=== PATIENT | male | born 1940 | race Caucasian/White ===

== ENCOUNTER 2016-07-01 05:33 | Emergency (ER) | payer MEDICARE, BC ==
[2016-07-01 05:41] VITALS: BP 140/94
--- NOTE | 2016-07-01 06:22 | EDM.PDOC ---
ED HPI RENAL/ - General Chief Complaint: Genitourinary Problem Stated Complaint: BLADDER, CANT URINATE Time Seen by Provider: 07/01/16 06:18 Source of Information: Reports: Patient History Limitations: Reports: No limitations - History of Present Illness INITIAL COMMENTS - FREE TEXT/NARRATIVE: 76 yo white male c/o urinary retention PMHx. BPH Symptom Onset Date: 07/01/16 Symptom Onset Time: 20:00 Timing/Duration: Reports: Hour(s): Location: Reports: suprapubic Quality: Reports: fullness Severity: moderate Context: Reports: other (enlarged Prostate) Associated Symptoms: Reports: unable to urinate - Related Data Allergies/ADRs: Allergies Allergy/AdvReac Type Severity Reaction Status Date / Time aspirin Allergy Nausea and Verified 07/01/16 05:47 Vomiting diphenhydramine Allergy Cannot Verified 07/01/16 05:47 Remember metronidazole Allergy Nausea and Verified 07/01/16 05:47 Vomiting Home Meds: Home Meds Amitriptyline HCl [Amitriptyline HCl] 25 mg PO BEDTIME 03/11/16 [History] Aspirin [Ecotrin] 81 mg PO DAILY 03/11/16 [History] Doxazosin [Cardura] 4 mg PO DAILY 03/11/16 [History] Famotidine [Pepcid] 20 mg PO BID 03/11/16 [History] Hydrochlorothiazide/Lisinopril [Lisinopril/HCTZ 10-12.5 MG] 1 tab PO DAILY 03/11 [History] Hydrocodone/Acetaminophen [[place] 10-325 Tablet] 1 tab PO BID PRN 03/11/16 [ History] Hydrocortisone Acetate [Anucort-HC] 1 supp RECTAL ASDIRECTED PRN 03/11/16 [ History] Mag Hydrox/Al Hydrox/Simeth [Maalox Maximum Strength Susp] 30 ml PO TID [History] Metoprolol Succinate [Toprol XL] 25 mg PO DAILY 03/11/16 [History] traMADol HCl [Tramadol HCl] 50 mg PO TID PRN 03/11/16 [History] Past Medical History HEENT History: Reports: Impaired vision Other HEENT History: wears glasses Cardiovascular History: Reports: High cholesterol, Hypertension Respiratory History: Reports: None Gastrointestinal History: Reports: Diverticulosis, Gastritis, GERD, Irritable bowel syndrome Genitourinary History: Reports: Prostate disorder Musculoskeletal History: Reports: Osteoarthritis, Other (see below) Other Musculoskeletal History: degenerative disc disease, L) knee pain Neurological History: Reports: None Psychiatric History: Reports: None Endocrine/Metabolic History: Reports: Obesity/BMI 30+, Other (see below) Other Endocrine/Metabolic History: perdiabetes Hematologic History: Reports: None Immunologic History: Reports: None Oncologic (Cancer) History: Reports: None Dermatologic History: Reports: None - Infectious Disease History Infectious Disease History: Reports: Measles, Mumps - Past Surgical History Head Surgeries/Procedures: Reports: None HEENT Surgical History: Reports: None Cardiovascular Surgical History: Reports: None GI Surgical History: Reports: Cholecystectomy, Colonoscopy, EGD Male Surgical History: Reports: None Endocrine Surgical History: Reports: None Neurological Surgical History: Reports: None Musculoskeletal Surgical History: Reports: Arthroscopic knee, Arthroscopic procedure Other Musculoskeletal Surgeries/Procedures:: ARTHROSCOPY TO SHOULDER AND KNEE Oncologic Surgical History: Reports: None Dermatological Surgical History: Reports: None Social & Family History - Family History Family Medical History: Noncontributory - Tobacco Use Smoking Status *Q: Never Smoker Second Hand Smoke Exposure: No - Caffeine Use Caffeine Use: Reports: None - Recreational Drug Use Recreational Drug Use: No Drug Use in Last 12 Months: No ED ROS GENERAL - Review of Systems Review Of Systems: See Below Constitutional: Reports: no symptoms HEENT: Reports: No symptoms Respiratory: Reports: No Symptoms Cardiovascular: Reports: No symptoms Endocrine: Reports: no symptoms GI/Abdominal: Reports: No symptoms : Reports: urinary retention Musculoskeletal: Reports: no symptoms Skin: Reports: no symptoms Neurological: Reports: No Symptoms Psychiatric: Reports: No symptoms Hematologic/Lymphatic: Reports: no symptoms Immunologic: Reports: no symptoms ED EXAM, RENAL/ - Physical Exam Exam: See Below Exam Limited By: No limitations General Appearance: alert, WD/WN, no apparent distress, obese Eye Exam: bilateral eye: PERRL Ears: normal external exam Nose: normal inspection Throat/Mouth: Normal inspection Head: atraumatic Neck: normal inspection Respiratory/Chest: no respiratory distress Cardiovascular: normal peripheral pulses GI/Abdominal: normal bowel sounds, soft, non tender (Male) Exam: No hernia, Normal inspection Back Exam: normal inspection Extremities: normal inspection, normal range of motion Neurological: alert, oriented, CN II-XII intact Psychiatric: normal affect Skin Exam: Warm, Dry Lymphatic: no adenopathy Course - Vital Signs Last Recorded V/S: Last Vital Signs Temp 36.2 C 07/01/16 05:36 Pulse 78 07/01/16 05:36 Resp 18 07/01/16 05:36 BP 140/94 H 07/01/16 05:36 Pulse Ox 97 07/01/16 05:36 - Orders/Labs/Meds Labs: Laboratory Tests 07/01/16 Range/Units 05:49 Urine Color Yellow (YELLOW) Urine Appearance Clear (CLEAR) Urine pH 7.5 (5.0-9.0) Ur Specific [place] 1.015 (1.005-1.030) Urine Protein Negative (NEGATIVE) Urine Glucose (UA) Negative (NEGATIVE) Urine Ketones Negative (NEGATIVE) Urine Occult Blood Moderate H (NEGATIVE) Urine Nitrite Negative (NEGATIVE) Urine Bilirubin Negative (NEGATIVE) Urine Urobilinogen 0.2 (0.2-1.0) mg/dL Ur Leukocyte Esterase Negative (NEGATIVE) Urine RBC 5-10 H /HPF Urine WBC 0-5 (0-5/HPF) /HPF Ur Epithelial Cells Rare /HPF Urine Mucus Rare /LPF Departure - Departure Time of Disposition: 06:20 Disposition: Home, Self-Care 01 Condition: good Clinical Impression: Urinary retention due to benign prostatic hyperplasia Forms: ED Department Discharge Additional Instructions: keep urinary leg bag in place and continue taking your medications as prescribed F/U w/ your PCP for Referral to Urology for evaluation
== END 2016-07-01 06:37 | disposition home or self-care (01) ==
LOC: DL.ED 05:33
DX: N40.1 Benign prostatic hyperplasia with lower urinary tract symptoms (principal); R33.8 Other retention of urine; E78.00 Pure hypercholesterolemia, unspecified; I10 Essential (primary) hypertension; K21.9 Gastro-esophageal reflux disease without esophagitis; M19.90 Unspecified osteoarthritis, unspecified site; E66.9 Obesity, unspecified; Z90.49 Acquired absence of other specified parts of digestive tract; Z79.82 Long term (current) use of aspirin; Z79.899 Other long term (current) drug therapy; Z88.6 Allergy status to analgesic agent; Z88.8 Allergy status to other drugs, medicaments and biological substances
CPT/HCPCS: 51702; 81001; 99282; 99283

== ENCOUNTER 2016-07-02 08:17 | Emergency (ER) | payer MEDICARE, BC ==
[2016-07-02 08:36] VITALS: BP 135/84
--- NOTE | 2016-07-02 08:42 | EDM.PDOC ---
ED HPI RENAL/ - General Chief Complaint: Genitourinary Problem Stated Complaint: TROUBLE WITH PROSTATE BAG/BLOOD Time Seen by Provider: 07/02/16 08:36 Source of Information: Reports: Patient History Limitations: Reports: No limitations - History of Present Illness INITIAL COMMENTS - FREE TEXT/NARRATIVE: pt states that he was having urinary retention yesterday and was seen here and had a urinary henley placed and today he woke with hematuria. c/o mild tenderness. no other complaints. hematuria noted to leg bag with small clot. Symptom Onset Date: 07/02/16 Timing/Duration: Reports: Getting worse Location: Reports: urethral Quality: Reports: ache Severity: mild Associated Symptoms: Reports: no other symptoms - Related Data Allergies/ADRs: Allergies Allergy/AdvReac Type Severity Reaction Status Date / Time aspirin Allergy Nausea and Verified 07/02/16 08:26 Vomiting diphenhydramine Allergy Cannot Verified 07/02/16 08:26 Remember metronidazole Allergy Nausea and Verified 07/02/16 08:26 Vomiting Home Meds: Home Meds Amitriptyline HCl [Amitriptyline HCl] 25 mg PO BEDTIME 03/11/16 [History] Doxazosin [Cardura] 4 mg PO DAILY 03/11/16 [History] Famotidine [Pepcid] 20 mg PO BID 03/11/16 [History] Hydrochlorothiazide/Lisinopril [Lisinopril/HCTZ 10-12.5 MG] 1 tab PO DAILY 03/11 [History] Hydrocodone/Acetaminophen [[place] 10-325 Tablet] 1 tab PO BID PRN 03/11/16 [ History] Hydrocortisone Acetate [Anucort-HC] 1 supp RECTAL ASDIRECTED PRN 03/11/16 [ History] Mag Hydrox/Al Hydrox/Simeth [Maalox Maximum Strength Susp] 30 ml PO TID [History] Metoprolol Succinate [Toprol XL] 25 mg PO DAILY 03/11/16 [History] traMADol HCl [Tramadol HCl] 50 mg PO TID PRN 03/11/16 [History] Past Medical History HEENT History: Reports: Impaired vision Other HEENT History: wears glasses Cardiovascular History: Reports: High cholesterol, Hypertension Respiratory History: Reports: None Gastrointestinal History: Reports: Diverticulosis, Gastritis, GERD, Irritable bowel syndrome Genitourinary History: Reports: Prostate disorder Musculoskeletal History: Reports: Osteoarthritis, Other (see below) Other Musculoskeletal History: degenerative disc disease, L) knee pain Neurological History: Reports: None Psychiatric History: Reports: None Endocrine/Metabolic History: Reports: Obesity/BMI 30+, Other (see below) Other Endocrine/Metabolic History: perdiabetes Hematologic History: Reports: None Immunologic History: Reports: None Oncologic (Cancer) History: Reports: None Dermatologic History: Reports: None - Infectious Disease History Infectious Disease History: Reports: Measles, Mumps - Past Surgical History Head Surgeries/Procedures: Reports: None HEENT Surgical History: Reports: None Cardiovascular Surgical History: Reports: None GI Surgical History: Reports: Cholecystectomy, Colonoscopy, EGD Male Surgical History: Reports: None Endocrine Surgical History: Reports: None Neurological Surgical History: Reports: None Musculoskeletal Surgical History: Reports: Arthroscopic knee, Arthroscopic procedure Other Musculoskeletal Surgeries/Procedures:: ARTHROSCOPY TO SHOULDER AND KNEE Oncologic Surgical History: Reports: None Dermatological Surgical History: Reports: None Social & Family History - Family History Family Medical History: Noncontributory - Tobacco Use Smoking Status *Q: Never Smoker Second Hand Smoke Exposure: No - Caffeine Use Caffeine Use: Reports: None - Recreational Drug Use Recreational Drug Use: No Drug Use in Last 12 Months: No ED ROS GENERAL - Review of Systems Review Of Systems: See Below : Reports: hematuria ED EXAM, RENAL/ - Physical Exam Exam: See Below Exam Limited By: No limitations General Appearance: alert, WD/WN, no apparent distress Respiratory/Chest: no respiratory distress, lungs clear, normal breath sounds, no accessory muscle use, chest non-tender Cardiovascular: normal peripheral pulses, regular rate, rhythm, no edema, no gallop, no JVD, no murmur, no rub (Male) Exam: Other (henley in place. moderate hematuria noted in bag with small clots. no drainage present at meatus currently. ) Course - Vital Signs Last Recorded V/S: Last Vital Signs Temp 97.4 F 07/02/16 08:32 Pulse 63 07/02/16 08:32 Resp 18 07/02/16 08:32 BP 135/84 07/02/16 08:32 Pulse Ox 95 07/02/16 08:32 - Orders/Labs/Meds Orders: Active Orders 24 hr Category Date Time Status Bladder Irrigation [RC] ASDIRECTED Care 07/02/16 08:44 Active Henley Catheter Insertion [Insert Urinary Catheter] [OM. Care 07/02/16 09:30 Ordered PC] Q24H Urinary Catheter Assessment [RC] ASDIRECTED Care 07/02/16 09:24 Active - Re-Assessments/Exams Free Text/Narrative Re-Assessment/Exam: 07/02/16 09:42Foley replaced now with pink tinged urine, no drainage at meatus or around henley noted. Departure - Departure Time of Disposition: 09:43 Disposition: Home, Self-Care 01 Condition: good Clinical Impression: Hematuria syndrome, Urinary retention due to benign prostatic hyperplasia Instructions: Henley Catheter Care, Adult, Acute Urinary Retention, Male Forms: ED Department Discharge Additional Instructions: Make sure to keep your appointment today. Return for any worsening symptoms - My Orders Last 24 Hours: My Active Orders 07/02/16 08:44 Bladder Irrigation [RC] ASDIRECTED 07/02/16 09:24 Urinary Catheter Assessment [RC] ASDIRECTED 07/02/16 09:30 Henley Catheter Insertion [Insert Urinary Catheter] [OM.PC] Q24H - Assessment/Plan Last 24 Hours: My Active Orders 07/02/16 08:44 Bladder Irrigation [RC] ASDIRECTED 07/02/16 09:24 Urinary Catheter Assessment [RC] ASDIRECTED 07/02/16 09:30 Henley Catheter Insertion [Insert Urinary Catheter] [OM.PC] Q24H
== END 2016-07-02 09:52 | disposition home or self-care (01) ==
LOC: DL.ED 08:17
DX: N40.1 Benign prostatic hyperplasia with lower urinary tract symptoms (principal); R33.8 Other retention of urine; R31.9 Hematuria, unspecified; E78.00 Pure hypercholesterolemia, unspecified; I10 Essential (primary) hypertension; K21.9 Gastro-esophageal reflux disease without esophagitis; M19.90 Unspecified osteoarthritis, unspecified site; E66.9 Obesity, unspecified; Z90.49 Acquired absence of other specified parts of digestive tract; Z88.6 Allergy status to analgesic agent; Z88.8 Allergy status to other drugs, medicaments and biological substances; Z79.899 Other long term (current) drug therapy; Z98.890 Other specified postprocedural states
CPT/HCPCS: 51702; 99282; 99283

== ENCOUNTER 2018-06-28 13:26 | Emergency (ER) | payer OTHER ==
[2018-06-28 14:11] LABS: ANION GAP 13.6
--- NOTE | 2018-06-28 14:13 | EDM.PDOC ---
<Pavel Barrett - Last Filed: 06/28/18 15:02> ED HPI GENERAL MEDICAL PROBLEM - General Chief Complaint: Gastrointestinal Problem Stated Complaint: POSSIBLE BOWL UBSTRUCTION Time Seen by Provider: 06/28/18 14:00 - Related Data Allergies Allergy/AdvReac Type Severity Reaction Status Date / Time aspirin Allergy Nausea and Verified 07/02/16 08:26 Vomiting diphenhydramine Allergy Cannot Verified 07/02/16 08:26 Remember metronidazole Allergy Nausea and Verified 07/02/16 08:26 Vomiting Home Meds: Home Meds Amitriptyline HCl 25 mg PO BEDTIME 03/11/16 [History] Doxazosin [Cardura] 4 mg PO DAILY 03/11/16 [History] Famotidine [Pepcid] 20 mg PO BID 03/11/16 [History] Hydrochlorothiazide/Lisinopril [Lisinopril/HCTZ 10-12.5 MG] 1 tab PO DAILY 03/11 [History] Hydrocodone/Acetaminophen [[place] 10-325 Tablet] 1 tab PO BID PRN 03/11/16 [ History] Hydrocortisone Acetate [Anucort-HC] 1 supp RECTAL ASDIRECTED PRN 03/11/16 [ History] Mag Hydrox/Al Hydrox/Simeth [Maalox Maximum Strength Susp] 30 ml PO TID [History] Metoprolol Succinate [Toprol XL] 25 mg PO DAILY 03/11/16 [History] traMADol HCl [Tramadol HCl] 50 mg PO TID PRN 03/11/16 [History] Course - Vital Signs Last Recorded V/S: Last Vital Signs Temp 98.0 F 06/28/18 13:32 Pulse 58 L 06/28/18 13:32 Resp 18 06/28/18 13:32 BP 119/61 06/28/18 13:32 Pulse Ox 98 06/28/18 13:32 - Orders/Labs/Meds Orders: Active Orders 24 hr Category Date Time Status CULTURE BLOOD [BC] Stat Lab 06/28/18 13:42 Received UA W/MICROSCOPIC [URIN] Urgent Lab 06/28/18 14:47 Results Labs: Laboratory Tests 06/28/18 06/28/18 06/28/18 Range/Units 13:42 13:42 13:42 WBC 5.6 (5.0-10.0) 10^3/uL RBC 4.31 L (4.6-6.2) 10^6/uL Hgb 12.9 L (14.0-18.0) g/dL Hct 39.3 L (40.0-54.0) % MCV 91.2 (80-100) fL MCH 29.9 (27.0-34.0) pg MCHC 32.8 L (33.0-35.0) g/dL Plt Count 290 (150-450) 10^3/uL Neut % (Auto) 50.0 (42.2-75.2) % Lymph % (Auto) 22.3 (20.5-50.1) % [place] % (Auto) 19.6 H (2-8) % Eos % (Auto) 7.6 H (1.0-3.0) % Baso % (Auto) 0.5 (0.0-1.0) % Sodium (135-145) mmol/L Potassium (3.6-5.0) mmol/L Chloride (101-111) mmol/L Carbon Dioxide (21.0-31.0) mmol/L Anion Gap BUN (7-18) mg/dL Creatinine (0.6-1.3) mg/dL Est Cr Clr Drug Dosing mL/min Estimated GFR (MDRD) BUN/Creatinine Ratio Glucose (74-105) mg/dL Lactic Acid 0.6 (0.5-2.2) mmol/L Calcium (8.4-10.2) mg/dl Total Bilirubin (0.2-1.0) mg/dL AST (10-42) IU/L ALT (10-60) IU/L Alkaline Phosphatase (42-121) IU/L Total Protein (6.7-8.2) g/dl Albumin (3.2-5.5) g/dl Globulin Albumin/Globulin Ratio Amylase 37 (28-100) U/L Lipase 26 (22-51) U/L Urine Color (YELLOW) Urine Appearance (CLEAR) Urine pH (5.0-9.0) Ur Specific [place] (1.005-1.030) Urine Protein (NEGATIVE) Urine Glucose (UA) (NEGATIVE) Urine Ketones (NEGATIVE) Urine Occult Blood (NEGATIVE) Urine Nitrite (NEGATIVE) Urine Bilirubin (NEGATIVE) Urine Urobilinogen (0.2-1.0) mg/dL Ur Leukocyte Esterase (NEGATIVE) 06/28/18 06/28/18 Range/Units 13:42 14:47 WBC (5.0-10.0) 10^3/uL RBC (4.6-6.2) 10^6/uL Hgb (14.0-18.0) g/dL Hct (40.0-54.0) % MCV (80-100) fL MCH (27.0-34.0) pg MCHC (33.0-35.0) g/dL Plt Count (150-450) 10^3/uL Neut % (Auto) (42.2-75.2) % Lymph % (Auto) (20.5-50.1) % [place] % (Auto) (2-8) % Eos % (Auto) (1.0-3.0) % Baso % (Auto) (0.0-1.0) % Sodium 135 (135-145) mmol/L Potassium 3.6 (3.6-5.0) mmol/L Chloride 95 L (101-111) mmol/L Carbon Dioxide 30.0 (21.0-31.0) mmol/L Anion Gap 13.6 BUN 27 H (7-18) mg/dL Creatinine 1.4 H (0.6-1.3) mg/dL Est Cr Clr Drug Dosing 50.73 mL/min Estimated GFR (MDRD) 49 BUN/Creatinine Ratio 19.28 Glucose 98 (74-105) mg/dL Lactic Acid (0.5-2.2) mmol/L Calcium 10.7 H (8.4-10.2) mg/dl Total Bilirubin 0.7 (0.2-1.0) mg/dL AST 21 (10-42) IU/L ALT 21 (10-60) IU/L Alkaline Phosphatase 76 (42-121) IU/L Total Protein 6.9 (6.7-8.2) g/dl Albumin 3.9 (3.2-5.5) g/dl Globulin 3.0 Albumin/Globulin Ratio 1.30 Amylase (28-100) U/L Lipase (22-51) U/L Urine Color Dark yellow (YELLOW) Urine Appearance Clear (CLEAR) Urine pH >= 9.0 (5.0-9.0) Ur Specific [place] 1.015 (1.005-1.030) Urine Protein Trace H (NEGATIVE) Urine Glucose (UA) Negative (NEGATIVE) Urine Ketones Negative (NEGATIVE) Urine Occult Blood Negative (NEGATIVE) Urine Nitrite Negative (NEGATIVE) Urine Bilirubin Negative (NEGATIVE) Urine Urobilinogen 0.2 (0.2-1.0) mg/dL Ur Leukocyte Esterase Negative (NEGATIVE) - Re-Assessments/Exams Free Text/Narrative Re-Assessment/Exam: 06/28/18 15:03 I have examined the patient. I have discussed findings and treatment plan with the medical student. I agree with the assessment and plan in the following medical student's note. Departure - Departure Disposition: DC/Tfer to Other Clinical Impression: Abdominal pain - Discharge Information Referrals: Eli Jennings NP [Primary Care Provider] - Forms: Interfacility Transfer EMTALA Care Plan Goals: Discussed the examination, history, lab and CT results with Dr. Horner. Dr. Horner accepted the patient for continued evaluation and management as an inpatient at [facility] in [place]. The patient will be transported by [facility]. <Becca Bhat - Last Filed: 06/28/18 15:11> ED HPI GENERAL MEDICAL PROBLEM - General Source of Information: Reports: Patient History Limitations: Reports: No Limitations - History of Present Illness INITIAL COMMENTS - FREE TEXT/NARRATIVE: Evaristo is a 77 year old male directed to the Emergency [facility] from the [facility] presenting with midepigastric abdominal pain. He states for the past 4 days he has had a burning midepigastric pain with associated decreased appetite and multiple episodes of diarrhea. He denies nausea, vomiting, fever, chills, chest pain, shortness of breath, changes in bladder function, or swelling in his extremities. Past Medical History HEENT History: Reports: Impaired Vision Other HEENT History: wears glasses Cardiovascular History: Reports: High Cholesterol, Hypertension Respiratory History: Reports: None Gastrointestinal History: Reports: Diverticulosis, Gastritis, GERD, Irritable Bowel Syndrome Genitourinary History: Reports: Prostate Disorder Musculoskeletal History: Reports: Osteoarthritis, Other (See Below) Other Musculoskeletal History: degenerative disc disease, L) knee pain Neurological History: Reports: None Psychiatric History: Reports: None Endocrine/Metabolic History: Reports: Obesity/BMI 30+, Other (See Below) Other Endocrine/Metabolic History: perdiabetes Hematologic History: Reports: None Immunologic History: Reports: None Oncologic (Cancer) History: Reports: None Dermatologic History: Reports: None - Infectious Disease History Infectious Disease History: Reports: Measles, Mumps - Past Surgical History Head Surgeries/Procedures: Reports: None Neurological Surgical History: Reports: None Musculoskeletal Surgical History: Reports: Arthroscopic Knee, Arthroscopic Procedure Oncologic Surgical History: Reports: None Dermatological Surgical History: Reports: None Social & Family History - Family History Family Medical History: Noncontributory - Tobacco Use Smoking Status *Q: Never Smoker - Caffeine Use Caffeine Use: Reports: None - Recreational Drug Use Recreational Drug Use: No ED ROS GENERAL - Review of Systems Review Of Systems: ROS reveals no pertinent complaints other than HPI. ED EXAM, GI/ABD - Physical Exam Exam: See Below Exam Limited By: No Limitations General Appearance: Alert, No Apparent Distress Eyes: Bilateral: EOMI, Pale Conjunctiva (mild scleral icterus ) Ears: Normal External Exam Nose: Other (bilateral telangiectasia) Throat/Mouth: Normal Inspection Head: Atraumatic, Normocephalic Neck: Normal Inspection, Supple, Non-Tender, Full Range of Motion Respiratory/Chest: Crackles Cardiovascular: Normal Peripheral Pulses, Regular Rate, Rhythm, No Edema GI/Abdominal Exam: Soft, Distended, Tender (epigastric), Abnormal Bowel Sounds ( hyperactive). No: Guarding, Rigid Extremities: Normal Inspection, No Pedal Edema Neurological: Alert, Oriented Skin Exam: Warm, Dry, Intact, Normal Color Departure - Departure Time of Disposition: 14:58 Condition: Fair - Discharge Information *PRESCRIPTION DRUG MONITORING PROGRAM REVIEWED*: No *COPY OF PRESCRIPTION DRUG MONITORING REPORT IN PATIENT NAMRATA: No - Problem List & Annotations (1) Abdominal pain SNOMED Code(s): 62731399 Code(s): R10.9 - UNSPECIFIED ABDOMINAL PAIN Status: Acute Current Visit: Yes (2) Small bowel obstruction due to adhesions SNOMED Code(s): 550372978 Code(s): K56.50 - INTESTNL ADHESIONS, UNSP TO PARTIAL VERSUS COMPLETE OBST Status: Acute Current Visit: Yes - Problem List Review Problem List Initiated/Reviewed/Updated: Yes - Assessment/Plan Assessment:: Evaristo is a 77 year old male presenting with epigastric abdominal pain for [address] scan was completed showing a mechanical small bowel obstruction. Plan: Laboratory tests including CBC, CMP, Urinalysis, Blood cultures, Lactic acid, Amylase and Lipase were completed. [facility] about [facility] and was given instruction to call [facility] because they do not have GI coverage.
[2018-06-28 15:27] VITALS: BP 124/65
== END 2018-06-28 15:36 ==
LOC: DL.ED 13:26
DX: K56.699 Other intestinal obstruction unspecified as to partial versus complete obstruction (principal); R73.03 Prediabetes; E78.00 Pure hypercholesterolemia, unspecified; I10 Essential (primary) hypertension; Z79.899 Other long term (current) drug therapy; Z88.8 Allergy status to other drugs, medicaments and biological substances
CPT/HCPCS: 36415; 80053; 81001; 82150; 83605; 83690; 85025; 87040; 99285

== ENCOUNTER 2024-12-29 16:52 | Emergency (ER) | payer MEDICARE, BC ==
[2024-12-29] MEDS ORDERED: Sodium Chloride 0.9% 10 ML Syringe FLUSH PRN (17:05)
[2024-12-29 17:17] LABS: PLATELET COUNT,PLT 373 10^3/uL (150-450); RED BLOOD CELL COUNT 3.62 10^6/uL (4.6-6.2); WHITE BLOOD CELL COUNT,WBC 19.2 10^3/uL (5.0-10.0)
[2024-12-29 17:28] LABS: BASOPHILS PERCENT AUTO 0.3 % (0.0-1.0); EOSINOPHILS PERCENT AUTO 0.2 % (1.0-3.0); LYMPHOCYTES PERCENT AUTO 3.8 % (20.5-50.1); MONOCYTES PERCENT AUTO 14.8 % (2-8); NEUTROPHILS PERCENT AUTO 80.9 % (42.2-75.2)
[2024-12-29 17:43] LABS: ALANINE AMINOTRANSFERASE,ALT 21.0 U/L (16-63); ASPARTATE AMNIOTRANSFERASE,AST 34.0 U/L (15-37); BILIRUBIN TOTAL 0.9 mg/dL (0.2-1.0); BLOOD UREA NITROGEN,BUN 43.0 mg/dL (7-18); CARBON DIOXIDE,CO2 31.0 mmol/L (21-32); CHLORIDE,CL 100.0 mmol/L (98-107); CREATININE 2.3 mg/dL (0.70-1.30); EST CRCL DRUG DOSING (CG) 23.54 mL/min; GLUCOSE RANDOM 130.0 mg/dL (70-99); POTASSIUM,K 4.3 mmol/L (3.5-5.1); PROTEIN TOTAL,TP 7.1 g/dL (6.4-8.2); SODIUM,NA 137.0 mmol/L (136-145)
[2024-12-29 17:45] LABS: A/G RATIO 0.65; ESTIMATED GFR 27.0 mL/min (>=60)
[2024-12-29 17:50] LABS: BAND PERCENT MAN 2 %; LYMPHOCYTES PERCENT MAN 7 % (20-50); MONOCYTES PERCENT MAN 13 % (2-8); SEG NEUTROPHILS PERCENT MAN 78 % (42-75)
[2024-12-29] MEDS ORDERED: Ampicillin/Sulbactam Na 3 GM in Sodium Chloride 0.9% 100 ML IV ONE (19:16)
[2024-12-29 20:09] LABS: LACTIC ACID 1.0 mmol/L (0.4-2.0)
[2024-12-29 21:43] VITALS: BP 131/72; PULSE 100
[2025-01-01] MEDS: Iopamidol 612 MG/ML 100 ML Bottle IVPUSH ONE (07:06)
== END 2024-12-29 20:30 ==
LOC: DL.ED 16:52
DX: S01.01XA Laceration without foreign body of scalp, initial encounter (principal); S80.02XA Contusion of left knee, initial encounter; J86.9 Pyothorax without fistula; I10 Essential (primary) hypertension; K21.9 Gastro-esophageal reflux disease without esophagitis; E78.00 Pure hypercholesterolemia, unspecified; E66.9 Obesity, unspecified; Z88.8 Allergy status to other drugs, medicaments and biological substances; Z79.899 Other long term (current) drug therapy; W19.XXXA Unspecified fall, initial encounter
CPT/HCPCS: 36415; 70450; 71260; 72125; 74177; 80053; 83605; 83735; 83880; 84145; 84484; 85025; 86140; 93005; 93010; 96361; 96365; 99285; Q9967

== ENCOUNTER 2025-01-11 10:05 | Inpatient (IN) | payer MEDICARE, BC ==
[2025-01-11] MEDS: Phosphorus #1 250 MG Tab PO SCH (18:05)
[2025-01-11] MEDS: Aluminum Hydroxide/Magnesium Hydroxide/Simethicone Susp 30 ML Cup PO SCH (18:05)
[2025-01-11] MEDS: Saccharomyces Boulardii (Probiotic) 250 MG Cap PO SCH (20:13)
[2025-01-11] MEDS: Clotrimazole 1% Crm 30 GM Tube TOP SCH (20:23)
[2025-01-12 06:40] LABS: PLATELET COUNT,PLT 428 10^3/uL (150-450); RED BLOOD CELL COUNT 3.83 10^6/uL (4.6-6.2); WHITE BLOOD CELL COUNT,WBC 10.9 10^3/uL (5.0-10.0)
[2025-01-12 06:48] LABS: BASOPHILS PERCENT AUTO 0.5 % (0.0-1.0); EOSINOPHILS PERCENT AUTO 3.7 % (1.0-3.0); LYMPHOCYTES PERCENT AUTO 12.1 % (20.5-50.1); MONOCYTES PERCENT AUTO 13.1 % (2-8); NEUTROPHILS PERCENT AUTO 70.6 % (42.2-75.2)
[2025-01-12 07:20] LABS: ALANINE AMINOTRANSFERASE,ALT 31.0 U/L (16-63); ASPARTATE AMNIOTRANSFERASE,AST 25.0 U/L (15-37); BILIRUBIN DIRECT 0.2 mg/dL (0.0-0.2); BILIRUBIN INDIRECT 0.2; BILIRUBIN TOTAL 0.4 mg/dL (0.2-1.0); BLOOD UREA NITROGEN,BUN 26.0 mg/dL (7-18); CARBON DIOXIDE,CO2 34.0 mmol/L (21-32); CHLORIDE,CL 101.0 mmol/L (98-107); CREATININE 1.15 mg/dL (0.70-1.30); EST CRCL DRUG DOSING (CG) 53.42 mL/min; GLUCOSE RANDOM 106.0 mg/dL (70-99); PHOSPHORUS 3.2 mg/dL (2.6-4.7); POTASSIUM,K 4.2 mmol/L (3.5-5.1); PROTEIN TOTAL,TP 6.8 g/dL (6.4-8.2); SODIUM,NA 140.0 mmol/L (136-145)
[2025-01-12 07:24] LABS: A/G RATIO 0.51; ESTIMATED GFR 63.0 mL/min (>=60)
[2025-01-12 07:55] LABS: EOSINOPHILS PERCENT MAN 4 % (1-3); LYMPHOCYTES PERCENT MAN 12 % (20-50); MONOCYTES PERCENT MAN 12 % (2-8); SEG NEUTROPHILS PERCENT MAN 72 % (42-75)
[2025-01-15 10:10] LABS: PLATELET COUNT,PLT 508 10^3/uL (150-450); RED BLOOD CELL COUNT 3.94 10^6/uL (4.6-6.2); WHITE BLOOD CELL COUNT,WBC 7.7 10^3/uL (5.0-10.0)
[2025-01-15 10:16] LABS: BASOPHILS PERCENT AUTO 1.2 % (0.0-1.0); EOSINOPHILS PERCENT AUTO 6.0 % (1.0-3.0); LYMPHOCYTES PERCENT AUTO 13.3 % (20.5-50.1); MONOCYTES PERCENT AUTO 11.8 % (2-8); NEUTROPHILS PERCENT AUTO 67.7 % (42.2-75.2)
[2025-01-15 10:26] LABS: BLOOD UREA NITROGEN,BUN 35.0 mg/dL (7-18); CARBON DIOXIDE,CO2 35.0 mmol/L (21-32); CHLORIDE,CL 98.0 mmol/L (98-107); CREATININE 1.74 mg/dL (0.70-1.30); EST CRCL DRUG DOSING (CG) 35.31 mL/min; GLUCOSE RANDOM 119.0 mg/dL (70-99); POTASSIUM,K 4.4 mmol/L (3.5-5.1); SODIUM,NA 136.0 mmol/L (136-145)
[2025-01-15 10:29] LABS: ESTIMATED GFR 38.0 mL/min (>=60)
[2025-01-15 10:46] LABS: BAND PERCENT MAN 1 %; BASOPHILS PERCENT MAN 1; EOSINOPHILS PERCENT MAN 8 % (1-3); LYMPHOCYTES PERCENT MAN 15 % (20-50); MONOCYTES PERCENT MAN 10 % (2-8); SEG NEUTROPHILS PERCENT MAN 65 % (42-75)
[2025-01-18 06:41] LABS: BASOPHILS PERCENT AUTO 0.6 % (0.0-1.0); EOSINOPHILS PERCENT AUTO 7.4 % (1.0-3.0); LYMPHOCYTES PERCENT AUTO 18.4 % (20.5-50.1); MONOCYTES PERCENT AUTO 12.5 % (2-8); NEUTROPHILS PERCENT AUTO 61.1 % (42.2-75.2); PLATELET COUNT,PLT 395 10^3/uL (150-450); RED BLOOD CELL COUNT 3.74 10^6/uL (4.6-6.2); WHITE BLOOD CELL COUNT,WBC 7.9 10^3/uL (5.0-10.0)
[2025-01-18 07:07] LABS: A/G RATIO 0.61; ALANINE AMINOTRANSFERASE,ALT 26.0 U/L (16-63); ASPARTATE AMNIOTRANSFERASE,AST 24.0 U/L (15-37); BILIRUBIN TOTAL 0.6 mg/dL (0.2-1.0); BLOOD UREA NITROGEN,BUN 25.0 mg/dL (7-18); CARBON DIOXIDE,CO2 31.0 mmol/L (21-32); CHLORIDE,CL 99.0 mmol/L (98-107); CREATININE 1.15 mg/dL (0.70-1.30); EST CRCL DRUG DOSING (CG) 53.42 mL/min; ESTIMATED GFR 63.0 mL/min (>=60); GLUCOSE RANDOM 97.0 mg/dL (70-99); POTASSIUM,K 4.2 mmol/L (3.5-5.1); PROTEIN TOTAL,TP 6.6 g/dL (6.4-8.2); SODIUM,NA 135.0 mmol/L (136-145)
[2025-01-18 07:27] LABS: SEDIMENTATION RATE MANUAL 64 mm/hr (0-15)
[2025-01-18] MEDS: Lactulose Soln 10 GM/15 ML 30 ML UD Cup PO ONE (12:15)
[2025-01-19] MEDS: Menthol 85 GM Jar TOP PRN (08:53)
[2025-01-20] MEDS: Sodium Chloride 0.9% 10 ML Syringe FLUSH PRN (07:43)
[2025-01-22 06:34] LABS: BASOPHILS PERCENT AUTO 0.6 % (0.0-1.0); EOSINOPHILS PERCENT AUTO 8.0 % (1.0-3.0); LYMPHOCYTES PERCENT AUTO 20.0 % (20.5-50.1); MONOCYTES PERCENT AUTO 12.7 % (2-8); NEUTROPHILS PERCENT AUTO 58.7 % (42.2-75.2); PLATELET COUNT,PLT 329 10^3/uL (150-450); RED BLOOD CELL COUNT 3.91 10^6/uL (4.6-6.2); WHITE BLOOD CELL COUNT,WBC 8.3 10^3/uL (5.0-10.0)
[2025-01-22 07:02] LABS: ALANINE AMINOTRANSFERASE,ALT 27.0 U/L (16-63); ASPARTATE AMNIOTRANSFERASE,AST 18.0 U/L (15-37); BILIRUBIN TOTAL 0.7 mg/dL (0.2-1.0); BLOOD UREA NITROGEN,BUN 19.0 mg/dL (7-18); CARBON DIOXIDE,CO2 31.0 mmol/L (21-32); CHLORIDE,CL 103.0 mmol/L (98-107); CREATININE 1.08 mg/dL (0.70-1.30); EST CRCL DRUG DOSING (CG) 56.88 mL/min; GLUCOSE RANDOM 95.0 mg/dL (70-99); POTASSIUM,K 4.3 mmol/L (3.5-5.1); PROTEIN TOTAL,TP 7.2 g/dL (6.4-8.2); SODIUM,NA 141.0 mmol/L (136-145)
[2025-01-22 07:03] LABS: A/G RATIO 0.67; ESTIMATED GFR 68.0 mL/min (>=60)
[2025-01-22] MEDS: Lidocaine 2% Jelly 10 ML Urojet MUCMEM ONE (23:01)
[2025-01-27] MEDS: Acetaminophen/HYDROcodone 325-10 MG Tab PO ONE (17:11)
[2025-01-27] MEDS: Acetaminophen/HYDROcodone 325-10 MG Tab PO PRN (20:40)
[2025-01-28] MEDS: Acetaminophen/HYDROcodone 325-5 MG Tab PO ONE (14:13)
[2025-01-29 06:52] LABS: BASOPHILS PERCENT AUTO 0.4 % (0.0-1.0); EOSINOPHILS PERCENT AUTO 4.3 % (1.0-3.0); LYMPHOCYTES PERCENT AUTO 12.2 % (20.5-50.1); MONOCYTES PERCENT AUTO 19.7 % (2-8); NEUTROPHILS PERCENT AUTO 63.4 % (42.2-75.2); PLATELET COUNT,PLT 238 10^3/uL (150-450); RED BLOOD CELL COUNT 3.58 10^6/uL (4.6-6.2); WHITE BLOOD CELL COUNT,WBC 8.4 10^3/uL (5.0-10.0)
[2025-01-29 07:10] LABS: ALANINE AMINOTRANSFERASE,ALT 98.0 U/L (16-63); ASPARTATE AMNIOTRANSFERASE,AST 60.0 U/L (15-37); BILIRUBIN TOTAL 0.7 mg/dL (0.2-1.0); BLOOD UREA NITROGEN,BUN 19.0 mg/dL (7-18); CARBON DIOXIDE,CO2 30.0 mmol/L (21-32); CHLORIDE,CL 100.0 mmol/L (98-107); CREATININE 0.88 mg/dL (0.70-1.30); EST CRCL DRUG DOSING (CG) 69.81 mL/min; GLUCOSE RANDOM 104.0 mg/dL (70-99); POTASSIUM,K 4.4 mmol/L (3.5-5.1); PROTEIN TOTAL,TP 6.6 g/dL (6.4-8.2); SODIUM,NA 136.0 mmol/L (136-145)
[2025-01-29 07:14] LABS: A/G RATIO 0.65; ESTIMATED GFR 85.0 mL/min (>=60)
[2025-01-29 15:52] LABS: APPEARANCE,URINE SLIGHTLY CLOUDY (CLEAR); GLUCOSE,URINE NEGATIVE (NEGATIVE); OCCULT BLOOD,URINE TRACE-INTACT (NEGATIVE)
[2025-01-29 16:00] LABS: EPITHELIAL CELLS,URINE FEW /HPF (NOT SEEN)
[2025-01-29] MEDS: Saccharomyces Boulardii (Probiotic) 250 MG Cap PO SCH (21:27)
[2025-01-30] MEDS: Dexamethasone 4 MG/ML SDV IVPUSH ONE (11:08)
[2025-01-30] MEDS: Bumetanide 1 MG/4 ML MDV IVPUSH ONE (11:16)
[2025-01-30] MEDS: Acetaminophen/HYDROcodone 325-10 MG Tab PO PRN (20:37)
[2025-02-04 06:00] LABS: BASOPHILS PERCENT AUTO 0.7 % (0.0-1.0); EOSINOPHILS PERCENT AUTO 5.0 % (1.0-3.0); LYMPHOCYTES PERCENT AUTO 20.0 % (20.5-50.1); MONOCYTES PERCENT AUTO 13.0 % (2-8); NEUTROPHILS PERCENT AUTO 61.3 % (42.2-75.2); PLATELET COUNT,PLT 345 10^3/uL (150-450); RED BLOOD CELL COUNT 4.10 10^6/uL (4.6-6.2); WHITE BLOOD CELL COUNT,WBC 8.4 10^3/uL (5.0-10.0)
[2025-02-05 11:29] VITALS: BP 116/69; PULSE 82
== END 2025-02-05 14:10 | disposition home health service (06) | DRG 947 ==
LOC: UNDOADMIN 13:20 → DL.MS 13:20
PROVIDERS: ADMIT Internal Medicine; ATTEND Internal Medicine
DX: R53.81 Other malaise (principal); J96.01 Acute respiratory failure with hypoxia; I48.19 Other persistent atrial fibrillation; I50.32 Chronic diastolic (congestive) heart failure; Z68.41 Body mass index [BMI] 40.0-44.9, adult; N39.0 Urinary tract infection, site not specified; H54.7 Unspecified visual loss; E78.5 Hyperlipidemia, unspecified; I11.0 Hypertensive heart disease with heart failure; I27.20 Pulmonary hypertension, unspecified; K58.9 Irritable bowel syndrome, unspecified; E66.01 Morbid (severe) obesity due to excess calories; E03.9 Hypothyroidism, unspecified; E78.00 Pure hypercholesterolemia, unspecified; M19.90 Unspecified osteoarthritis, unspecified site; K21.9 Gastro-esophageal reflux disease without esophagitis; N42.9 Disorder of prostate, unspecified; Z90.49 Acquired absence of other specified parts of digestive tract; Z88.8 Allergy status to other drugs, medicaments and biological substances; Z79.01 Long term (current) use of anticoagulants; Z79.899 Other long term (current) drug therapy; Z98.890 Other specified postprocedural states
CPT/HCPCS: 36415; 51701; 51702; 51703; 51798; 70450; 71046; 72125; 72128; 72131; 72192; 73130-LT; 80048; 80053; 80076; 81001; 83735; 84100; 84550; 85025; 85651; 86140; 87086; 87088; 87186; 94060; 97110-GO; 97110-GP; 97116-GP; 97161-GP; 97165-GO; 97530-GO; 97530-GP; 97535-GO; 99306; 99309; 99310; 99316; A9270-GY; J0696; J1100; J1171; J1939; J7030; J8540